=== PATIENT | female | born 1985 ===

== ENCOUNTER 2019-08-21 02:24 | Inpatient (IN) | payer OTHER ==
[2019-08-21] MEDS ORDERED: LACTATED RINGERS 1,000 ML IV SCH (03:00)
[2019-08-21] MEDS ORDERED: MINERAL OIL 30 ML ORAL LIQD PO PRN (03:00)
[2019-08-21] MEDS ORDERED: BUTORPHANOL 2 MG/1 ML INJ IV PRN (03:00)
[2019-08-21] MEDS ORDERED: ePHEDrine SULFATE 50 MG/1 ML INJ IV PRN (03:00)
[2019-08-21] MEDS ORDERED: LIDOCAINE (2%) 20 MG/1 ML VIAL 20 ML MDV INFILTRATI ONE ×2 (03:00→10:13)
[2019-08-21] MEDS ORDERED: fentaNYL 100 MCG/2 ML INJ IV PRN (03:00)
[2019-08-21] MEDS ORDERED: AMPICILLIN/NS 2 GM/100 ML 2 GM/100 ML BAG IV ONE (03:00)
[2019-08-21] MEDS ORDERED: TERBUTALINE 1 MG/1 ML INJ IVP PRN (03:00)
[2019-08-21] MEDS ORDERED: OXYTOCIN 20 UNIT/1000ML DRIP 20 UNITS/1,000 ML BAG IV SCH (03:00)
[2019-08-21] MEDS ORDERED: TERBUTALINE 1 MG/1 ML INJ SUB-Q PRN (03:00)
[2019-08-21 03:52] LABS: Hematocrit 36.4 % (30.3-42.9); Hemoglobin 12.3 gm/dl (10.1-14.3); Mean Corpuscular HGB Conc 34 % (30-34); Mean Corpuscular Volume 96 fl (79-97); Platelet Count 200 K/mm3 (140-440); Red Cell Distribution Width 13.6 % (13.2-15.2)
--- NOTE | 2019-08-21 06:38 | History and Physical Report ---
History of Present Illness Date of examination: 08/21/19 Date of admission: 08/21/19 02:51 Chief complaint: 39 week ; Active labor History of present illness: 34 yo, at 39.1 weeks gestation. Initiated care with [facility] at 6.1 weeks gestation. course has been uncomplicated. She presents to [facility] with reports of painful ctxs for past couple of hours. Reports positive FM, denies VB or LOF. Labs: A+, antibody negative; Hgb/Hct-11.8/35.7; PAP smear negative; Rubella immune; RPR negative; Urinen screen negative; HbsAG negative; HIV negative GC/Chlamydia negative; MSAFP negative; 1 hr Gtt- 137; 3 hr Gtt- 78, 169, 143, 111; GBS positive Past History Past Medical History: no pertinent history Past Surgical History: no surgical history Family/Genetic History: diabetes (mother), hypertension (mother), cancer (father- Lung CA), Down's syndrome ([place]) Social history: , lives with family, full code. denies: smoking, alcohol abuse, prescription drug abuse, IV drug use - Obstetrical History Expected Date of Delivery: 08/27/19 Actual Gestation: 39 Week(s) 1 Day(s) : 3 Para: 2 Hx # Term Pregnancies: 0 Number of Pregnancies: 0 Spontaneous Abortions: 0 Induced : 0 Number of Living Children: 2 #1 Gender: Male year: 2,[birth year] Birthweight: 3.175 kg Method of Delivery: Vaginal Gestational age at delivery: 40 Complications: none #2 Gender: Female year: 2,[birth year] Birthweight: 3.175 kg Method of Delivery: Vaginal Gestational age at delivery: 40 Complications: none Medications and Allergies Allergies Allergy/AdvReac Type Severity Reaction Status Date / Time caffeine Allergy Shortness Verified 08/21/19 03:03 of Breath chandan Allergy Shortness Verified 08/21/19 03:03 of Breath Active Meds: Active Medications Butorphanol Tartrate (Stadol) 2 mg IV Q2H PRN PRN Reason: Pain , Severe (7-10) Ephedrine Sulfate (Ephedrine Sulfate) 10 mg IV Q2M PRN PRN Reason: Hypotension Fentanyl (Sublimaze) 100 mcg IV Q2H PRN PRN Reason: Labor Pain Oxytocin/Sodium Chloride (Pitocin/Ns 20 Unit/1000ml Drip) 20 units in 1,000 mls @ 125 mls/hr IV DIRECT PHILIPP Lactated Ringer's (Lactated Ringers) 1,000 mls @ 125 mls/hr IV DIRECT PHILIPP Last Admin: 08/21/19 04:14 Dose: 125 mls/hr Documented by: Ampicillin Sodium (Ampicillin/Ns 1 Gm/50 Ml) 1 gm in 50 mls @ 100 mls/hr IV Q4HR PHILIPP; Protocol Mineral Oil (Mineral Oil) 30 ml PO QHS PRN PRN Reason: Constipation Terbutaline Sulfate (Brethine) 0.25 mg SUB-Q ONCE PRN PRN Reason: Hyperstimulation/Hypertonicity Terbutaline Sulfate (Brethine) 0.25 mg IVP ONCE PRN PRN Reason: Hyperstimulation/Hypertonicity Review of Systems Genitourinary: contractions - Vital Signs Vital signs: Vital Signs Temp Resp 97.6 F 18 08/21/19 02:46 08/21/19 02:46 Temp Pulse Resp BP Pulse Ox 98.1 F 75 18 113/58 08/21/19 04:37 08/21/19 04:38 08/21/19 04:37 08/21/19 04:38 - Physical Exam Breasts: Positive: deferred Cardiovascular: Regular rate Lungs: Positive: Normal air movement Abdomen: Positive: other (gravid) Vagina: Positive: normal moisture Uterus: Positive: enlarged Extremities: Positive: normal Deep Tendon Reflex Grade: Normal +2 - Obstetrical FHR: category 1 Uterine Contraction Monitor Mode: External Cervical Dilatation: 4 Cervical Effacement Percentage: 70 station: -2 Uterine Contraction Frequency (min): 3-4 Uterine Contraction Pattern: Irregular Uterine Tone Measurement Phase: Resting Uterine Contraction Intensity: Moderate Results Result Diagrams: 08/21/19 03:15 All other labs normal. Assessment and Plan - Patient Problems (1) 39 weeks gestation of Current Visit: Yes Status: Acute Plan to address problem: Admit to L & D Expectant management Pain meds as desired Anticipate (2) Positive GBS test Current Visit: Yes Status: Acute Plan to address problem: GBS prophylaxis per protocol
[2019-08-21] MEDS ORDERED: AMPICILLIN/NS 1 GM/50 ML 1 GM/50 ML BAG IV SCH (07:00)
--- NOTE | 2019-08-21 08:37 | Progress Note ---
Assessment and Plan A: IUP @ 39 1/7 Weeks Category I Tracing Active Labor GBS Positive P: AROM IUPC Placed Start Pitocin Augmentation Continue GBS Prophylaxis Subjective - Subjective Date of service: 08/21/19 Patient reports: movement normal, contractions Objective - Vital Signs Vital Signs: Vital Signs - 12hr 08/21/19 08/21/19 08/21/19 02:46 04:37 04:38 Temperature 97.6 F 98.1 F Pulse Rate 75 75 Respiratory 18 18 Rate Blood Pressure 113/58 Blood Pressure 113/58 [Right] O2 Sat by Pulse Oximetry 08/21/19 08/21/19 08/21/19 07:12 07:50 07:55 Temperature 98.2 F Pulse Rate 75 84 79 Respiratory 20 Rate Blood Pressure Blood Pressure 113/58 [Right] O2 Sat by Pulse 100 100 Oximetry 08/21/19 08/21/19 08/21/19 08:00 08:05 08:10 Temperature Pulse Rate 67 71 72 Respiratory Rate Blood Pressure Blood Pressure [Right] O2 Sat by Pulse 100 100 99 Oximetry 08/21/19 08/21/19 08/21/19 08:15 08:20 08:25 Temperature Pulse Rate 79 76 66 Respiratory Rate Blood Pressure Blood Pressure [Right] O2 Sat by Pulse 100 100 99 Oximetry 08/21/19 08/21/19 08:27 08:30 Temperature Pulse Rate 64 84 Respiratory Rate Blood Pressure Blood Pressure [Right] O2 Sat by Pulse 85 100 Oximetry - Exam Breasts: normal Cardiovascular: Regular rate Lungs: Clear to auscultation, Normal air movement Abdomen: Present: normal appearance, soft, normal bowel sounds FHR: category 1 Uterine Contraction Monitor Mode: Internal Cervical Dilatation: 7 (Scant amount of clear fluid upon AROM @0830) Cervical Effacement Percentage: 80 station: -3 Uterine Contraction Pattern: Irregular Uterine Tone Measurement Phase: Resting Uterine Contraction Intensity: Moderate Extremities: normal - Labs Labs: Laboratory Results - last 24 hr 08/21/19 08/21/19 03:15 03:15 WBC 7.1 RBC 3.80 Hgb 12.3 Hct 36.4 MCV 96 MCH 32 MCHC 34 RDW 13.6 Plt Count 200 Blood Type A POSITIVE Antibody Screen Negative
[2019-08-21] MEDS ORDERED: OXYTOCIN DRIP 30 UNITS/500 ML BAG IV SCH (09:00)
[2019-08-21] MEDS ORDERED: diphenhydrAMINE 25 MG CAP PO PRN (10:30)
--- NOTE | 2019-08-21 10:33 | Procedure Note ---
OB Delivery Note - Delivery Date of Delivery: 08/21/19 (1007) Surgeon: BEN NEAL Estimated blood loss: 200cc - Vaginal Delivery presentation: vertex Delivery position: OA Intrapartum events: none Delivery induction: none Delivery augmentation: rupture of membranes, pitocin Delivery monitor: external FHT, internal uterine Route of delivery: Delivery placenta: spontaneous Delivery cord: 3 umbilical vessels Delivery laceration: 1st degree Delivery repair: vicryl Anesthesia: local Delivery comments: of a live 8'7 male over a 1st degree vaginal laceration without pain control with Apgars of 8 and 9 at 1007 on 08/21/2019. Infant directly to maternal abd/chest, skin to skin contact. Spontaneous delivery of placenta complete and intact with [place] side presenting at 1011. Fundus is firm and midline located 4 below the U. Lochia is scant. Vaginal laceration repaired with 2-0 Vicryl on a SH under 2% Lidocaine. GBS Prophylaxis x 2. Delayed cord clamping and cutting; Cord cut by the Father of the Baby. Placenta discarded. - A at 1 minute: 8 at 5 minutes: 9 Gender: Male (8'7)
[2019-08-21] MEDS ORDERED: HYDROcodone/ACETAMINOPHEN 5-325 MG TAB PO PRN (11:00)
[2019-08-21] MEDS ORDERED: FLU VACC QUAD 2019-20 (3 YR UP)/PF 60 MCG/0.5 ML SYRINGE IM ONE (12:00)
[2019-08-21] MEDS: IBUPROFEN 600 MG TAB PO SCH ×2 (17:46→23:02)
[2019-08-22 00:52] LABS: Hematocrit 34.2 % (30.3-42.9); Hemoglobin 11.4 gm/dl (10.1-14.3)
[2019-08-22] MEDS: IBUPROFEN 600 MG TAB PO SCH ×4 (04:40→22:16)
[2019-08-22] MEDS: PRENATAL VIT27-FE FUMARATE-FOLIC ACID VIT TAB PO SCH (10:08)
--- NOTE | 2019-08-22 10:42 | Progress Note ---
Assessment and Plan A: PPD#1 s/p Stable P: Routine PP care Discharge home today pending peds Subjective - Subjective Date of service: 08/22/19 Principal diagnosis: PPD#1 s/p Patient reports: appetite normal, voiding normally, pain well controlled, flatus, ambulating normally, no bowel movement : doing well, other (breast/bottle) Objective - Vital Signs Latest vital signs: Vital Signs Temp Pulse Resp BP BP Pulse Ox 08/22/19 08:20 97.3 F L 70 18 100/48 08/22/19 05:40 18 08/22/19 04:40 18 08/22/19 00:00 98.7 F 70 18 119/78 08/21/19 19:30 98.7 F 74 18 101/55 08/21/19 15:37 98.6 F 87 18 104/45 97 08/21/19 12:30 98.3 F 76 18 103/51 98 08/21/19 11:23 68 99 08/21/19 11:21 75 99/51 08/21/19 11:18 66 99 08/21/19 11:16 98.2 F 67 18 99 08/21/19 11:06 73 106/53 08/21/19 10:51 66 90/47 Intake and Output 08/21/19 08/22/19 08/22/19 23:59 07:59 15:59 Intake Total 300 480 Output Total 1400 Balance -1100 480 Intake: Oral 480 Intake, Free Water 300 Output: Urine 1400 Void 1400 Other: Total, Intake Amount 480 Total, Output Amount 800 # Voids Void 1 - Exam Breasts: Present: normal, Cardiovascular: Present: Regular rate, Normal S1, Normal S2, No murmurs Lungs: Present: Clear to auscultation, Normal air movement Abdomen: Present: normal appearance, soft, normal bowel sounds. Absent: distention Vulva: both: laceration/episiotomy (first degree well approximated) Uterus: Present: firm, fundal height at umbilicus Extremities: Present: normal Deep Tendon Reflex Grade: Normal +2
--- NOTE | 2019-08-22 10:43 | Discharge Summary ---
Providers - Providers Date of Admission: 08/21/19 09:28 Date of discharge: 08/22/19 Attending physician: AMANDA JACOBSEN MD Primary care physician: AMANDA JACOBSEN MD Hospitalization Reason for admission: active labor, IUP at term Delivery: Procedure details: See H&P and delivery note Episiotomy: none Laceration: 1st degree Other procedures: none complications: none, pelvic infection [place] baby: male Condition at discharge: Good Disposition: DC-01 TO HOME OR SELFCARE Plan - Provider Discharge Summary Activity: routine, no sex for 6 weeks, no heavy lifting 4 weeks, no strenuous exercise Diet: routine Instructions: routine Additional instructions: [] Smoking cessation referral if applicable(refer to patient education folder for contact #) [] Refer to [facility]'s [facility] Booklet Call your doctor immediately for: * Fever > 100.5 * Heavy vaginal bleeding ( >1 pad per hour) * Severe persistent headache * Shortness of breath * Reddened, hot, painful area to leg or breast * Drainage or odor from incision. * Keep incision clean and dry at all times and follow doctor's instructions regarding bathing/showering - Follow up plan Follow up: AMANDA JACOBSEN MD [Primary Care Provider] - 6 Weeks
[2019-08-22] MEDS ORDERED: BENZOCAINE/MENTHOL 20/0.5% TOP SPRAY 56 GM TP PRN (16:51)
[2019-08-23] MEDS ORDERED: LANOLIN/ZINC/DIMETHICONE (LANSINOH) 7 GM TP ONE (10:21)
[2019-08-23] MEDS: PRENATAL VIT27-FE FUMARATE-FOLIC ACID VIT TAB PO SCH (10:25)
[2019-08-23] MEDS ORDERED: LANOLIN/ZINC/DIMETHICONE (LANSINOH) 7 GM TP PRN (15:30)
[2019-08-23 15:51] VITALS: BP 127/77
== END 2019-08-23 16:30 | disposition home or self-care (01) | DRG 807 ==
LOC: TRG 02:24 → LD 02:51 → OBSVTOIN 09:28 → OB 13:02
PROVIDERS: ADMIT Obstetrics & Gynecology; ATTEND Obstetrics & Gynecology
PROC: 10E0XZZ Delivery of Products of Conception, External Approach (ICD-10-PCS; principal; 2019-08-21)
PROC: 10H07YZ Insertion of Other Device into Products of Conception, Via Natural or Artificial Opening (ICD-10-PCS; 2019-08-21)
PROC: 10907ZC Drainage of Amniotic Fluid, Therapeutic from Products of Conception, Via Natural or Artificial Opening (ICD-10-PCS; 2019-08-21)
PROC: 0HQ9XZZ Repair Perineum Skin, External Approach (ICD-10-PCS; 2019-08-21)
DX: O99.824 Streptococcus B carrier state complicating childbirth (principal); Z37.0 Single live birth; Z3A.39 39 weeks gestation of pregnancy; Z83.3 Family history of diabetes mellitus; Z82.49 Family history of ischemic heart disease and other diseases of the circulatory system; Z80.1 Family history of malignant neoplasm of trachea, bronchus and lung; O70.0 First degree perineal laceration during delivery
CPT/HCPCS: 36415; 85014; 85018; 85027; 86850; 86900; 86901; 90686; 96360; 96365; G0378; A6250; J0290; J2590; J7120